=== PATIENT | female | born 1995 | race African-American/Black ===

== ENCOUNTER 2017-10-20 21:35 | Emergency (ER) | payer OTHER ==
[~2017-10-20] VITALS: Ht 160 cm; Wt 57.6 kg
[2017-10-20 21:42] VITALS: Ht 160 cm; Wt 57.6 kg
[2017-10-20 23:49] VITALS: BP 126/74
== END 2017-10-20 23:49 | disposition home or self-care (01) ==
LOC: ED 21:35
DX: J02.0 Streptococcal pharyngitis (principal)
CPT/HCPCS: J0696; J1100

== ENCOUNTER 2018-08-03 00:01 | Emergency (ER) | payer MEDICAID ==
[~2018-08-03] VITALS: Ht 160 cm; Wt 59.4 kg
[2018-08-03 00:06] VITALS: Ht 160 cm; Wt 59.4 kg
[2018-08-03 02:13] VITALS: BP 101/69
== END 2018-08-03 02:13 | disposition home or self-care (01) ==
LOC: ED 00:01
DX: J20.9 Acute bronchitis, unspecified (principal)